=== PATIENT | female | born 1975 | race Caucasian/White ===

== ENCOUNTER 2021-06-20 21:11 | Emergency (ER) | payer OTHER ==
[~2021-06-20] VITALS: Ht 154.9 cm; Wt 61.2 kg
--- NOTE | 2021-06-20 22:35 | NUR ---
BIBS FOR S/I WITH PLAN TO "JUMP IN FRONT OF TRAFFIC". PT CHANGED INTO GOWN. BELONGINGS OBTAINED AND SECURED. 1:1 SITTER. CONNECTED TO MONITOR. AWAITING MD ELLIS
[2021-06-20 22:47] LABS: BASOPHILS # (AUTO) 0.1 K/uL (0.0-0.2); BASOPHILS % (AUTO) 0.7 % (0.0-2.0); EOSINOPHILS % (AUTO) 4.6 % (0.0-6.0); HEMATOCRIT 39 % (33-45); HEMOGLOBIN 12.6 g/dL (11.5-14.8); LYMPHOCYTES # (AUTO) 2.9 K/uL (0.8-4.8); LYMPHOCYTES % (AUTO) 35.6 % (20.0-44.0); MEAN CORPUSCULAR HGB CONC 33 g/dl (31.0-36.0); MEAN CORPUSCULAR VOLUME 84 fL (82-100); MONOCYTES # (AUTO) 0.7 K/uL (0.1-1.30); MONOCYTES % (AUTO) 9.1 % (2.0-12.0); NEUTROPHILS # (AUTO) 4.1 K/uL (1.8-8.9); PLATELET COUNT (AUTO) 370 K/uL (150-450); WHITE BLOOD COUNT (AUTO) 8.2 K/uL (4.3-11.0)
[2021-06-20 23:05] LABS: ALANINE AMINOTRANSFERASE 21 U/L (12-78); ALBUMIN 3.7 g/dL (3.4-5.0); ALKALINE PHOSPHATASE 71 U/L (46-116); ASPARTATE AMINOTRANSFERASE 24 U/L (15-37); BILIRUBIN,DIRECT 0.1 mg/dL (0.0-0.2); BILIRUBIN,TOTAL 0.4 mg/dL (0.2-1.0); CALCIUM, SERUM 8.8 mg/dL (8.5-10.1); CARBON DIOXIDE 28 mmol/L (21-32); CHLORIDE 103 mmol/L (98-107); CREATININE 0.8 mg/dL (0.6-1.3); GLUCOSE 97 mg/dL (74-106); POTASSIUM 3.6 mmol/L (3.5-5.1); SODIUM SERUM 137 mmol/L (136-145); TOTAL PROTEIN, SERUM 8.5 g/dL (6.4-8.2); UREA NITROGEN, BLOOD 21 mg/dL (7-18)
[2021-06-20 23:07] LABS: ACETAMINOPHEN 0 ug/ml (10-30); ALCOHOL, BLOOD < 3 mg/dL (0-0)
--- NOTE | 2021-06-20 23:54 | NUR ---
covid swab done and sent to lab
--- NOTE | 2021-06-21 01:14 | NUR ---
PT IS RESTING COMFORTABLY IN BED, DENIES ANY PAIN AT THIS TIME. WILL CONTINUE TO MONITOR.
--- NOTE | 2021-06-21 03:56 | NUR ---
PROVIDED PT WITH FOOD, WILL CONTINUE TO MONITOR.
[2021-06-21 06:18] LABS: BILIRUBIN,URINE NEGATIVE (NEGATIVE); COLOR,URINE YELLOW (YELLOW); LEUKOCYTE ESTERASE ,URINE NEGATIVE (NEGATIVE); NITRITE, URINE NEGATIVE (NEGATIVE); PH,URINE 5.5 (5.0-8.0); PROTEIN,URINE NEGATIVE (NEGATIVE); UGLUCOSE NEGATIVE (NEGATIVE); UROBILINOGEN,URINE 0.2 EU/dL (0.2)
--- NOTE | 2021-06-21 09:32 | NUR ---
SPOKE WITH HASMUKH [facility] INTAKE WILL FOLLOW UP WITH NURSING SUP FOR PLACEMENT.
--- NOTE | 2021-06-21 10:26 | NUR ---
HASMUKH CALLED PT ACCEPTED TO [facility] [address] [facility] PLEASE CALL [phone] FOR REPORT.
--- NOTE | 2021-06-21 11:22 | NUR ---
TRANSPORT WILL BE HERE AT 1300 PER HASMUKH.
--- NOTE | 2021-06-21 12:02 | NUR ---
LUNCH TRAY PROVIDED.
--- NOTE | 2021-06-21 12:08 | NUR ---
PICKED UP BY [facility] IN STABLE CONDITION
[2021-06-21 12:09] VITALS: BP 128/71
== END 2021-06-21 12:10 ==
LOC: ER 21:19
DX: R45.851 Suicidal ideations (principal); F32.A Depression, unspecified; Z59.00 Homelessness unspecified; F41.9 Anxiety disorder, unspecified; Z88.6 Allergy status to analgesic agent; G89.29 Other chronic pain; M54.9 Dorsalgia, unspecified
CPT/HCPCS: 36415; 80048; 80076; 80143; 80307; 80320; 81003; 84703; 85025; 87426; 99285; C9803; G0480

== ENCOUNTER 2021-06-25 05:31 | Emergency (ER) | payer OTHER ==
[~2021-06-25] VITALS: Ht 167.6 cm; Wt 65.8 kg
--- NOTE | 2021-06-25 05:47 | NUR ---
PT [id number] FROM THE STREETS FOR S/I WITH NO PLAN OR INTENT. PATIENT ALERT AND ORIENTED X3. AMBULATORY WITH NON LABORED BREATHING. PATIENT SEEKING VOLUNTARY ADMISSION TO PSYCH FACILITY. IN BED 18 BELONGINGS TAKEN AND PLACED IN LOCKER. PT AWAITING MD ELLIS.
--- NOTE | 2021-06-25 05:48 | NUR ---
URINE COLLECTED AND SENT TO LAB
--- NOTE | 2021-06-25 06:04 | NUR ---
PATIENT STATES SHE IS NO LONGER HAVING SUICIDAL IDEATIONI, AND FOUND HER PRESCRIPTION IN HER POCKET. PATIENT DOES NOT WISH TO SEEK VOLUNTARY ADMISSION TO PSYCH FACILITY ANYMORE. NOTIFIED.
[2021-06-25 06:53] VITALS: BP 136/90
== END 2021-06-25 06:53 | disposition home or self-care (01) ==
LOC: ER 05:39
DX: Z53.21 Procedure and treatment not carried out due to patient leaving prior to being seen by health care provider (principal)